=== PATIENT | male | born 1980 | race Caucasian/White ===

== ENCOUNTER 2019-11-17 08:53 | Emergency (ER) | payer BC ==
[2019-11-17 08:58] VITALS: RESP 16
--- NOTE | 2019-11-17 09:20 | ED ---
Back Pain HPI - General Chief Complaint: Back Pain/Injury Stated Complaint: back pain, leg numbness Time Seen by Provider: 11/17/19 09:02 Source: patient, RN notes reviewed Mode of arrival: ambulatory Limitations: no limitations - History of Present Illness Initial Comments: 39-year-old male presents emergency Department chief complaint of back pain, le ft leg pain. Patient states that she he was seen earlier in the week and urgent care and was started on some steroids for sciatica type pain. Patient states his back pains improved but states he now has this numb sensation to his left leg that goes all to his toe. He does have some pain rates down the back of his leg. Denies any bowel, bladder and Kienitz retention no abdominal pain. Patient states he is able and day but states it feels different on the left compared to the right. - Related Data Allergies Allergy/AdvReac Type Severity Reaction Status Date / Time Penicillins Allergy Unknown Verified 11/17/19 08:58 Childhood Review of Systems ROS Statement: Those systems with pertinent positive or pertinent negative responses have been documented in the HPI. ROS Other: All systems not noted in ROS Statement are negative. Past Medical History Past Medical History: Hypertension History of Any Multi-Drug Resistant Organisms: None Reported Past Surgical History: Cholecystectomy Past Psychological History: No Psychological Hx Reported Smoking Status: Never smoker Past Alcohol Use History: None Reported Past Drug Use History: None Reported General Exam Limitations: no limitations General appearance: alert, in no apparent distress Head exam: Present: atraumatic, normocephalic, normal inspection Eye exam: Present: normal appearance, PERRL, EOMI. Absent: scleral icterus, conjunctival injection, periorbital swelling Respiratory exam: Present: normal lung sounds bilaterally. Absent: respiratory distress, wheezes, rales, rhonchi, stridor Cardiovascular Exam: Present: regular rate, normal rhythm, normal heart sounds. Absent: systolic murmur, diastolic murmur, rubs, gallop, clicks GI/Abdominal exam: Present: soft, normal bowel sounds. Absent: distended, tenderness, guarding, rebound, rigid Extremities exam: Present: other (Mild discomfort with left straight leg raise, neurovascular intact no tenderness of the calf) Back exam: Present: full ROM. Absent: tenderness, paraspinal tenderness, vertebral tenderness Skin exam: Present: warm, dry, intact, normal color. Absent: rash Course Vital Signs 11/17/19 08:56 Temperature 97.9 F Pulse Rate 86 Respiratory 16 Rate Blood Pressure 174/95 O2 Sat by Pulse 100 Oximetry Medical Decision Making - Medical Decision Making CT was obtained of the lumbar spine which shows large disc herniation effacement of the thecal sac and left nerve root L4-L5. This is consistent with his symptoms. He is advised that he is follow-up with orthopedics Dr. Noe for MRI, possible physical therapy and further evaluation. Disposition Clinical Impression: Lumbar disc herniation with radiculopathy Disposition: HOME SELF-CARE Condition: Stable Instructions (If sedation given, give patient instructions): Lumbar Disc Herniation (ED) Additional Instructions: Please return to the Emergency Department if symptoms worsen or any other concerns. Is patient prescribed a controlled substance at d/c from ED?: No Referrals: Archie Yeboah DO [Primary Care Provider] - 1-2 days Isiah Dunham DO [Doctor of Osteopathic Medicine] - 1-2 days Time of Disposition: 09:46
--- NOTE | 2019-11-17 09:31 | CT ---
EXAMINATION TYPE: CT lumbar spine wo con DATE OF EXAM: 11/17/2019 9:20 AM COMPARISON: None HISTORY: Low back pain with left leg numbness. CT DLP: 1212.6 mGycm Automated exposure control for dose reduction was used. TECHNIQUE: Unenhanced CT of the lumbar spine was performed. Bone and soft tissue window settings are submitted as well as coronal and sagittal reconstructions. FINDINGS: Assessment spinal canal limited due to artifact and resolution. L1-L2: Normal disc space height. No disc herniation protrusion or central stenosis. No facet joint arthropathy. No evidence for foraminal encroachment. L2-L3: Mild circumferential disc bulging with mild effacement of thecal sac. No focal herniation. Lydia ral foramina patent. L3-L4: Broad-based central disc protrusion with effacement of thecal sac. Mild hypertrophy of the lig amentum flavum. Neural foramina remain patent. L4-L5: Degenerative disc disease with large area of abnormal density in the spinal canal centrally an d paracentrally to left suspicious for a very large disc herniation with thecal sac severe compressio n. Extruded or sequestered disc fragment extending posterior to the L5 vertebral segment suspected. R ecommend MRI. This likely resulting compromise of the exiting L4-L5 nerve root on the left. L5-S1: Facet arthropathy greater on the left. Central disc bulging noted. Tiny protrusion suggested. Encroaches upon the anterior margin of the thecal sac. Neural foramina remain patent. IMPRESSION: 1. Large abnormal density seen centrally and paracentrally to left at L4-L5 suspicious for a very lar ge disc herniation. Disc extrusion is noted extending posterior to the L5 vertebral body. Recommend M RI. There is severe compression of the thecal sac and probable compromise of the exiting left nerve r oot which could be evaluated with MRI. 2. Central disc protrusions at L5-S1 and L3-L4.
[2019-11-17 10:13] VITALS: BP 135/96; PULSE 89; TEMP 98.9
== END 2019-11-17 10:11 | disposition home or self-care (01) ==
LOC: EC 08:53
DX: M51.16 Intervertebral disc disorders with radiculopathy, lumbar region (principal); Z88.0 Allergy status to penicillin
CPT/HCPCS: 72131; 99283

== ENCOUNTER → 2020-07-04 | Outpatient (CLI) | payer BC | END | disposition home or self-care (01) | LOC: LABWHC1 14:27 | PROVIDERS: ATTEND Family Medicine | DX: R09.81 Nasal congestion (principal) | CPT/HCPCS: U0003; C9803 ==